=== PATIENT | female | born 1970 | race Two or more races ===

== ENCOUNTER 2019-12-24 15:50 | Inpatient (IN) | payer MEDICAID ==
[2019-12-24] VITALS (7 sets, daily range): BP systolic 119–135; BP diastolic 81–105
[~2019-12-24] VITALS: Ht 167.6 cm; Wt 78.5 kg
--- NOTE | 2019-12-24 17:30 | NUR ---
RN CLOSING NOTES NO ACUTE CHANGES TO PATIENT CONDITION DURING MY SHIFT. PHARMACY HAS NOT SENT THE INSUKLIN DRIP YET. ENDORSED TO PM NURSE TO START THE DRIP WHEN IT IS AVAILABLE. ALL PATIENT NEEDS WERE MET, CALL LIGHT WITHIN REACH, ENDORSED TO PM NURSE FOR CONTINUITY OF CARE. Addendum: 12/24/19 at 1954 by CYNTHIA KIMBROUGH RN WRONG TIME DOCUMENTED. NOTE FOR 1929
--- NOTE | 2019-12-24 17:50 | NUR ---
RN NOTE RECEIVED PATIENT DIRECT ADMIT FROM [facility]. PATIENT CAME IN WITH THE DIAGNOSIS OF DKA. A/O X4, ABLE TO MAKE NEEDS KNOWN. PATIENT IS ON ROOM AIR SATURATING WELL. NO RESPIRATORY DISTRESS NOTED. MD NOTIFIED OF PATIENTS ARRIVAL. PENDING ADMISSION ORDERS. BLOOD SUGAR WAS DONE AND RESULTS RELAYED TO PHYSICIAN. PATIENT IS ON TELE MONITOR WITH SR NOTED. LAC AND RAC 20 GAUGE INTACT, PATENT AND FLUSHED WELL. NO S/S OF INFECTION NOTED. ALL PATIENTS NEED MET, SAFETY WAS MAINTAINED, CALL LIGHT WITHIN REACH, WILL CONTINUE TO MONITOR.
--- NOTE | 2019-12-24 18:00 | NUR ---
RN NOTE MD PLACED AN ORDER FOR INSULIN DRIP. PROTOCOL DONE AND FAXED TO THE PHARMACY. WAITING ON PHARMACY TO BRING THE MEDICATION. PATIENT SAFETY IS MAINTAINED, CALL LIGHT WITHIN REACH, WILL CONTINUE TO MONITOR.
[2019-12-24] MEDS ORDERED: IV D5/0.45 NACL 1,000 ML IV PRN (18:30)
[2019-12-24] MEDS ORDERED: DEXTROSE 50%-WATER 50 ML DISP.SYRIN IV PRN (18:30)
[2019-12-24] MEDS ORDERED: MAG HYDROX/AL HYDROX/SIMETH 30 ML UDC PO PRN (19:00)
[2019-12-24] MEDS ORDERED: ONDANSETRON HCL/PF 4 MG/2 ML VIAL IVP PRN (19:00)
[2019-12-24] MEDS ORDERED: Z GUARD REMEDY 2 OZ OINT TP PRN (19:00)
[2019-12-24] MEDS ORDERED: ZOLPIDEM TARTRATE 5 MG TABLET PO PRN (19:00)
--- NOTE | 2019-12-24 19:30 | NUR ---
RN CLOSING NOTES NO ACUTE CHANGES TO PATIENT CONDITION DURING MY SHIFT. PHARMACY HAS NOT SENT THE INSUKLIN DRIP YET. ENDORSED TO PM NURSE TO START THE DRIP WHEN IT IS AVAILABLE. ALL PATIENT NEEDS WERE MET, CALL LIGHT WITHIN REACH, ENDORSED TO PM NURSE FOR CONTINUITY OF CARE.
[2019-12-24] MEDS: BLOOD SUGAR DIAGNOSTIC 1 EACH STRIP IN SCH ×5 (19:32→23:16)
[2019-12-24] MEDS: MORPHINE SULFATE INJ 2 MG/ML DISP.SYRIN IV PRN (19:51)
[2019-12-24] MEDS: INSULIN REGULAR, HUMAN 100 UNIT in IV NS 0.9% 99 ML IV PRN ×4 (20:07→21:00)
--- NOTE | 2019-12-24 20:30 | NUR ---
VP INTEGRATION NOTES RECEIVED PT IN BED. AOX4, ABLE TO MAKE NEEDS KNOWN. ON RA W/O2 SAT 95%, NO SOB NOTED. LARGE ANIMAL HUSBANDRY TECHNICIAN W/NSR. CONTINENT OF BOWEL AND URINE ABLE TO USE BEDSIDE COMMODE. PT IS AMBULATORY W/STANDBY ASSIST. SKIN IS INTACT. B ARM AC W/20G IVF AND INSULIN DRIP RUNNING PER PROTOCOL. ACCU-CHECK Q1H. . ALL SAFETY MEASURES IN PLACE. BED LOCKED, IN LOWEST POSITION. C/O PAIN, GIVING PRN PAIN MED, AND CONT TO MONITOR
[2019-12-24 21:07] LABS: CALCIUM, SERUM 7.7 mg/dL (8.5-10.1); CREATININE 0.9 mg/dL (0.6-1.3); POTASSIUM 4.1 mmol/L (3.5-5.1)
[2019-12-25] VITALS (20 sets, daily range): BP systolic 117–150; BP diastolic 74–102
[2019-12-25] MEDS: BLOOD SUGAR DIAGNOSTIC 1 EACH STRIP IN SCH ×8 (00:10→07:35)
[2019-12-25 02:14] LABS: BASOPHILS # (AUTO) 0.1 /CMM (0.0-0.2); BASOPHILS % (AUTO) 0.8 % (0.0-2.0); EOSINOPHILS % (AUTO) 0.1 % (0.0-6.0); HEMATOCRIT 24 % (33-45); LYMPHOCYTES # (AUTO) 1.1 /CMM (0.8-4.8); LYMPHOCYTES % (AUTO) 13.7 % (20.0-44.0); MEAN CORPUSCULAR HGB CONC 33 g/dl (31.0-36.0); MEAN CORPUSCULAR VOLUME 92 fL (82-100); MONOCYTES # (AUTO) 0.9 /CMM (0.1-1.30); MONOCYTES % (AUTO) 10.3 % (2.0-12.0); NEUTROPHILS # (AUTO) 6.3 /CMM (1.8-8.9); NEUTROPHILS % (AUTO) 75.1 % (43.0-81.0); PLATELET COUNT (AUTO) 195 /CMM (150-450); RED BLOOD CELL COUNT(AUTO) 2.65 MIL/uL (4.0-5.2); WHITE BLOOD COUNT (AUTO) 8.3 K/uL (4.3-11.0)
[2019-12-25 02:21] LABS: CALCIUM, SERUM 7.8 mg/dL (8.5-10.1); CREATININE 0.9 mg/dL (0.6-1.3); MAGNESIUM 1.8 mg/dL (1.8-2.4); PHOSPHORUS 2.3 mg/dL (2.5-4.9); POTASSIUM 4.3 mmol/L (3.5-5.1)
--- NOTE | 2019-12-25 03:30 | NUR ---
RAGMAN NOTES ROB NERI CALLED BACK, GIVEN INFO: PT'S POTASSIUM=4.3,ANION GAP=11, CO2=25, CURRENT MJ=002 AT 0300 AND RUNNING INSULIN W/CALCULATED DRIP AT 2.62U RIGHT NOW, ALONG W/IVF D51/2NS AT 100ML/HR. PT'S C/O RUQ PAIN. NEW ORDER FOLLOWING RECEIVED: -TO D/C INSULIN GTT, - GIVE 10U OF REGULAR INSULIN SQ RIGHT NOW - RECHECK IN 1 HR, IF BS IS WNL TO D/C D5 1/2NS, - START PT ON CCHO DIET TOLERATED. ORDER CARRIED OUT. WILL CONT TO MONITOR
[2019-12-25] MEDS ORDERED: INSULIN REGULAR, HUMAN 100 UNIT/ML 10 ML VIAL SQ ONE (03:32)
--- NOTE | 2019-12-25 06:50 | NUR ---
BLOWER AND COMPRESSOR ASSEMBLER NOTES PT IN BED SLEEPING EASILY AROUSABLE,. NAD, NO SOB AT THIS TIME. ENDORSED TO THE ONCOMING RN
--- NOTE | 2019-12-25 07:30 | NUR ---
COMPUTER PROJECT MANAGER INITIAL NOTE RECEIVED PATIENT AWAKE, ALERT AND ORIENTED. C/O 7/10 RLQ ABDOMEN. AND BACK PAIN, AND NAUSEA. ON TELE MONITOR SR. SKIN WARM AND DRY TO TOUCH. PATIENT REQUESTED FOR LAXATIVE. ON TELE MONITOR SR. SIDE RAILS UP AND LOCKED. BED KEPT AT LOWEST POSITION. CALL LIGHT KEPT WITHIN EASY REACH. WILL CONTINUE TO MONITOR.
[2019-12-25] MEDS: MORPHINE SULFATE INJ 2 MG/ML DISP.SYRIN IV PRN ×2 (07:42→19:58)
[2019-12-25] MEDS: MAGNESIUM HYDROXIDE 30 ML UDC PO PRN ×2 (07:50→20:18)
--- NOTE | 2019-12-25 07:50 | NUR ---
SLP TEACHER NOTE INFORMED DR LOMAX RECENT BLOOD SUGAR 204 AND PATIENT HAS BEEN OFF OF THE INSULIN DRIP, DOES NOT HAVE SLIDING SCALE. RECEIVED ORDER FOR MODERATE SLIDING SCALE FOR PATIENT. NOTED
[2019-12-25] MEDS: BLOOD SUGAR DIAGNOSTIC 1 EACH STRIP VI SCH ×4 (08:00→22:36)
[2019-12-25] MEDS ORDERED: DEXTROSE 50%-WATER 50 ML DISP.SYRIN IV PRN (08:00)
--- NOTE | 2019-12-25 09:22 | NUR ---
HUMAN RESOURCE OFFICER NOTE PATIENT RESTING COMFORTABLY AT THIS TIME. STATES SHE FEELS BETTER.
--- NOTE | 2019-12-25 09:47 | NUR ---
POLICE CHIEF NOTE WAITING FOR INSULIN FROM PHARMACY.
--- NOTE | 2019-12-25 10:35 | NUR ---
BEATER ROOM SUPERVISOR NOTE REPORT GIVEN TO 3W CHULA GRAJEDA.
--- NOTE | 2019-12-25 11:00 | NUR ---
BUILDING GUARD DEPUTY SHERIFF NOTE PATIENT TRANSFERRED TO [facility] VIA BED, ALL BELONGINGS WITH PATIENT. PATIENT SEEN BY DR LOMAX, INFORMED REGARDING PATIENT C/O CONSTIPATION, PER MD HE WILL PLACE ORDERS.
[2019-12-25] MEDS ORDERED: K PHOS NEUTRAL 250 MG TABLET PO ONE (11:30)
[2019-12-25] MEDS: INSULIN REGULAR, HUMAN 100 UNIT/ML 3 ML VIAL SQ PRN (11:43)
[2019-12-25] MEDS ORDERED: IOHEXOL-300 100 ML VIAL IV ONE (12:22)
[2019-12-25] MEDS ORDERED: IV NS 0.9% 250 ML IV ONE (12:23)
--- NOTE | 2019-12-25 13:31 | NUR ---
MS RN NOTES CALL RECEIVED FROM RADIOLOGIST ASKING FOR DR. BHANDARI PHONE NUMBER. PHONE NUMBER PROVIDED. WILL CONTINUE TO MONITOR.
--- NOTE | 2019-12-25 13:56 | NUR ---
MS RN NOTES DR. LOMAX AWARE OF CT OF THE ABD RESULTS. REQUESTED CONSULT WITH DR. CALDWELL. DR. CALDWELL MADE AWARE. WILL CONTINUE TO MONITOR.
[2019-12-25 15:38] LABS: BASOPHILS % (AUTO) 0.5 % (0.0-2.0); EOSINOPHILS % (AUTO) 2.3 % (0.0-6.0); HEMATOCRIT 23 % (33-45); HEMOGLOBIN 7.7 g/dL (11.5-14.8); LYMPHOCYTES # (AUTO) 1.2 /CMM (0.8-4.8); LYMPHOCYTES % (AUTO) 15.5 % (20.0-44.0); MEAN CORPUSCULAR HGB CONC 34 g/dl (31.0-36.0); MEAN CORPUSCULAR VOLUME 93 fL (82-100); NEUTROPHILS # (AUTO) 5.3 /CMM (1.8-8.9); NEUTROPHILS % (AUTO) 68.7 % (43.0-81.0); PLATELET COUNT (AUTO) 184 /CMM (150-450); RED BLOOD CELL COUNT(AUTO) 2.49 MIL/uL (4.0-5.2); WHITE BLOOD COUNT (AUTO) 7.7 K/uL (4.3-11.0)
--- NOTE | 2019-12-25 16:30 | NUR ---
MS RN NOTES PATIENT SEEN BY DR. CALDWELL NO INTERVENTIONS BY GENERAL SURGERY NEEDS OB. DR. LOMAX MADE AWARE AND CONSULTING DR. DO. ORDERS OBTAINED FROM DR. LOMAX TO TRANSFER TO ICU.
--- NOTE | 2019-12-25 17:00 | NUR ---
RN NOTES PATIENT TRANSFERRED TO ICU FOR CLOSER OBSERVATION. REPORT GIVEN TO ALBERT AT BEDSIDE.
--- NOTE | 2019-12-25 18:30 | NUR ---
POCKET STITCHER - DR PIZARRO ORDERS NS 0.9 % @ 75 ML/ HR CLEAR LIQUID DIET IF NO SURGERY SCHEDULED BY DEL
--- NOTE | 2019-12-25 19:00 | NUR ---
Received patient in bed awake,alert,converses,coherent and appropriate,not in any acute distress,still with pain( abdominal,RLQ pain and back pain),abdomen,soft,non distended,+ tenderness.Will closely monitor for any S/S of bleeding.
--- NOTE | 2019-12-25 19:00 | NUR ---
DYE MACHINE OPERATOR PATIENT A/O X4 . PATIENT IS ALERT AND ORIENTED . COOPERATIVE AND COMPLIANT WITH CARE. NO PAIN , NO SOB, NO ACUTE RESPIRATORY DISTRESS AT THIS TIME. SKIN IN TACT, L AC 18 RIGHT AC 18, NO SIGNS OF INFILTRATION OR RED NESS. PATENT AND FLUSHED. ON 75 ML/HR NS 0.9% MAINTENANCE BED LOCKED LOWEST POSITION CALL LIGHT WITH IN REACH ALL SAFETY MEASURE IMPLEMENTED PER HOSPITAL POLICY
[2019-12-25] MEDS: IV NS 0.9% 1,000 ML IV PRN (19:05)
--- NOTE | 2019-12-25 19:30 | NUR ---
Lab came to draw blood for CBC.
[2019-12-25 19:54] LABS: BASOPHILS % (AUTO) 0.4 % (0.0-2.0); EOSINOPHILS % (AUTO) 2.5 % (0.0-6.0); HEMATOCRIT 22 % (33-45); HEMOGLOBIN 7.3 g/dL (11.5-14.8); LYMPHOCYTES # (AUTO) 1.4 /CMM (0.8-4.8); LYMPHOCYTES % (AUTO) 15.8 % (20.0-44.0); MEAN CORPUSCULAR HGB CONC 33 g/dl (31.0-36.0); MEAN CORPUSCULAR VOLUME 94 fL (82-100); MONOCYTES # (AUTO) 1.1 /CMM (0.1-1.30); MONOCYTES % (AUTO) 12.5 % (2.0-12.0); NEUTROPHILS % (AUTO) 68.8 % (43.0-81.0); PLATELET COUNT (AUTO) 188 /CMM (150-450); RED BLOOD CELL COUNT(AUTO) 2.38 MIL/uL (4.0-5.2); WHITE BLOOD COUNT (AUTO) 8.7 K/uL (4.3-11.0)
--- NOTE | 2019-12-25 20:45 | NUR ---
HGB= 7.3 ,relayed to Enrique Serrano .also referred about patient has not had any bowel movement since Monday(patient on MOM but has not had any BM), did not want to order any more extra laxative as per him ,with patient having Hemoperitoneum , its not advisable to increase GI motility.Patient then was made aware .
--- NOTE | 2019-12-25 22:00 | NUR ---
Pain slightly relived by Morphine,able to sleep in between.
[2019-12-25] MEDS: *INSULIN REGULAR(HUMULIN R)HUM 100 UNIT/ML VIAL SQ PRN (22:35)
[2019-12-26] VITALS (28 sets, daily range): BP systolic 110–150; BP diastolic 63–92
--- NOTE | 2019-12-26 | NUR ---
Remains ,stable.awake,alert,still with on and off RLQ pain and back pain,gets OOB to the commode .tolerating well .
[2019-12-26] MEDS: MORPHINE SULFATE INJ 2 MG/ML DISP.SYRIN IV PRN (00:37)
[2019-12-26 04:09] LABS: BASOPHILS % (AUTO) 0.4 % (0.0-2.0); EOSINOPHILS % (AUTO) 3.6 % (0.0-6.0); LYMPHOCYTES # (AUTO) 1.3 /CMM (0.8-4.8); LYMPHOCYTES % (AUTO) 16.8 % (20.0-44.0); MEAN CORPUSCULAR HGB CONC 33 g/dl (31.0-36.0); MEAN CORPUSCULAR VOLUME 93 fL (82-100); MONOCYTES % (AUTO) 13.1 % (2.0-12.0); NEUTROPHILS # (AUTO) 4.9 /CMM (1.8-8.9); NEUTROPHILS % (AUTO) 66.1 % (43.0-81.0); PLATELET COUNT (AUTO) 181 /CMM (150-450); RED BLOOD CELL COUNT(AUTO) 2.19 MIL/uL (4.0-5.2); WHITE BLOOD COUNT (AUTO) 7.5 K/uL (4.3-11.0)
[2019-12-26 04:18] LABS: CALCIUM, SERUM 7.7 mg/dL (8.5-10.1); CREATININE 0.7 mg/dL (0.6-1.3); MAGNESIUM 2.1 mg/dL (1.8-2.4); PHOSPHORUS 2.3 mg/dL (2.5-4.9); POTASSIUM 3.8 mmol/L (3.5-5.1)
[2019-12-26 04:58] LABS: HEMOGLOBIN 6.7 g/dL (11.5-14.8)
[2019-12-26 04:59] LABS: HEMATOCRIT 20 % (33-45)
[2019-12-26 05:13] LABS: LYMPHOCYTES % (MANUAL) 23 % (16-48); NEUTROPHILS % (MANUAL) 68 (42-76)
[2019-12-26 05:14] LABS: MONOCYTES % (MANUAL) 9 % (0-11.0)
--- NOTE | 2019-12-26 05:30 | NUR ---
Message sent to MD relay HGB of 6.7
--- NOTE | 2019-12-26 06:10 | NUR ---
Called Md service to relay HGB result of 6.7 , waiting for call back
--- NOTE | 2019-12-26 06:30 | NUR ---
Still no response from .Another call made to the answering service.
--- NOTE | 2019-12-26 06:45 | NUR ---
Still no response from [facility] ,sheet metal operator called back to check if we got a response,states he will try to reach MD again.
--- NOTE | 2019-12-26 07:05 | NUR ---
RN NOTES RECEIVED PT ON BED, A/OX4, ON RA , NO SOB NOTED, VSS STABLE, C/O ON ABDOMINAL PAIN LEVEL 2/10 , ABDOMEN SOFT TO TOUCH, R AC AND L AC IV SITE G 20 CLEAN, DRY AN INTACT, NS AT 75CC/HR RUNNING , IV SITES CLEAN, DRY AND INTACT, SR UP X3, CALL LIGHT WITHIN EASY REACH, BED LOCKED AND IN LOWEST POSITION, CONTINUE TO MONITOR .
--- NOTE | 2019-12-26 07:10 | NUR ---
EPIC HARDWOOD FLOOR FINISHER CALLED BACK AGAIN TO CHECK IF ANTONY NERI ANSWERED,MADE HIM AWARE THAT HE HASN'T ,SERVICE ENGINEER SAID HE WILL PAGE THE ATTENDING DR. LOMAX.
--- NOTE | 2019-12-26 07:15 | NUR ---
RESPONDED ,REFERRED LOW HGB= 6.7.ORDERED TO GIVE 1 UNIT PRBC AND KEEP PATIENT NPO.
--- NOTE | 2019-12-26 07:42 | NUR ---
RN NOTES BLOOD CONSENT FORM SIGNED BY THE PT.
[2019-12-26] MEDS: IV NS 0.9% 1,000 ML IV PRN (07:52)
[2019-12-26] MEDS: BLOOD SUGAR DIAGNOSTIC 1 EACH STRIP VI SCH ×4 (08:09→22:06)
--- NOTE | 2019-12-26 09:22 | NUR ---
RN NOTES BLOOD TRANSFUSION STARTED, VSS STABLE , CONTINUE TO MONITOR .
[2019-12-26] MEDS ORDERED: K PHOS NEUTRAL 250 MG TABLET PO ONE (13:00)
--- NOTE | 2019-12-26 13:00 | NUR ---
RN NOTES PT TOLERATED BLOOD TRANSFUSION WELL, NO REACTION NOTED , CONTINUE TO MONITOR .
[2019-12-26] MEDS ORDERED: Sodium Phosphate 15 MMOL in IV NS 0.9% 245 ML IV SCH (14:00)
[2019-12-26 15:24] LABS: BASOPHILS % (AUTO) 0.6 % (0.0-2.0); EOSINOPHILS % (AUTO) 3.3 % (0.0-6.0); HEMATOCRIT 24 % (33-45); HEMOGLOBIN 7.8 g/dL (11.5-14.8); LYMPHOCYTES % (AUTO) 12.7 % (20.0-44.0); MEAN CORPUSCULAR HGB CONC 33 g/dl (31.0-36.0); MEAN CORPUSCULAR VOLUME 92 fL (82-100); MONOCYTES # (AUTO) 1.1 /CMM (0.1-1.30); MONOCYTES % (AUTO) 13.3 % (2.0-12.0); NEUTROPHILS # (AUTO) 5.7 /CMM (1.8-8.9); NEUTROPHILS % (AUTO) 70.1 % (43.0-81.0); PLATELET COUNT (AUTO) 173 /CMM (150-450); RED BLOOD CELL COUNT(AUTO) 2.58 MIL/uL (4.0-5.2); WHITE BLOOD COUNT (AUTO) 8.1 K/uL (4.3-11.0)
--- NOTE | 2019-12-26 18:30 | NUR ---
RN NOTES DR BURNS ON THE FLOOR SEEING THE PT , SURGICAL CONSENT SIGNED BY PT. PT WILL HAVE SURGERY TONIGHT PER DR BURNS ORDER . VSS STABLE, WILL ENDORSE TO CHECK CASHIER NURSER FOR CONTINUITY OF CARE,.
[2019-12-26] MEDS ORDERED: MIDAZOLAM HCL 2 MG/2ML VIAL ONE (19:01)
[2019-12-26] MEDS ORDERED: ANESTHESIA TRAY IN PYXIS 1 EA TRAY MC ONE (19:01)
[2019-12-26] MEDS ORDERED: FENTANYL PF 100MCG/2ML AMPUL ONE (19:02)
[2019-12-26] MEDS ORDERED: SEVOFLURANE 250 ML BOTTLE IH ONE (19:02)
--- NOTE | 2019-12-26 19:34 | NUR ---
SENIOR INFORMATION DEVELOPER PT PICKED UP BY OR TEAM.
[2019-12-26] MEDS ORDERED: BUPIVACAINE MPF 0.5% W/EPI INJ 30 ML VIAL ONE (20:53)
[2019-12-26] MEDS ORDERED: HYDROMORPHONE 1 MG/1 ML DISP.SYRIN IV PRN (22:30)
[2019-12-26] MEDS ORDERED: ONDANSETRON HCL/PF 4 MG/2 ML VIAL IV PRN (22:30)
[2019-12-26] MEDS ORDERED: HYDROMORPHONE INJ 2 MG/ML DISP.SYRIN IV PRN (22:30)
[2019-12-26] MEDS ORDERED: HYDROCODONE/APAP 5/325MG 1 EACH TABLET PO PRN (22:30)
[2019-12-27] VITALS (33 sets, daily range): BP systolic 98–138; BP diastolic 64–87
[2019-12-27] MEDS: IV NS 0.9% 1,000 ML IV PRN (02:15)
[2019-12-27 04:02] LABS: BASOPHILS % (AUTO) 0.1 % (0.0-2.0); HEMATOCRIT 23 % (33-45); HEMOGLOBIN 7.7 g/dL (11.5-14.8); LYMPHOCYTES # (AUTO) 0.5 /CMM (0.8-4.8); LYMPHOCYTES % (AUTO) 4.5 % (20.0-44.0); MEAN CORPUSCULAR HGB CONC 33 g/dl (31.0-36.0); MEAN CORPUSCULAR VOLUME 92 fL (82-100); MONOCYTES # (AUTO) 0.6 /CMM (0.1-1.30); MONOCYTES % (AUTO) 5.5 % (2.0-12.0); NEUTROPHILS # (AUTO) 9.7 /CMM (1.8-8.9); NEUTROPHILS % (AUTO) 89.9 % (43.0-81.0); PLATELET COUNT (AUTO) 192 /CMM (150-450); WHITE BLOOD COUNT (AUTO) 10.8 K/uL (4.3-11.0)
[2019-12-27 04:10] LABS: CALCIUM, SERUM 7.5 mg/dL (8.5-10.1); CREATININE 0.9 mg/dL (0.6-1.3); PHOSPHORUS 3.4 mg/dL (2.5-4.9)
--- NOTE | 2019-12-27 08:00 | NUR ---
PERSONNEL OFFICER: pt is A/Ox3, no pain now, slightly painful belly palpation/soft/no tender, R.LQ abd.dressing is intact/with old blood saturated 30%, SR, SBP over 100/below 160, O2sat.over 96% on 2L nc/no SOB, IVF NS 74
--- NOTE | 2019-12-27 08:00 | NUR ---
HUMANE AGENT: IVF NS 75ml/h, clear liquid diet/ok to advance, PIVLs: good blood return, BG 207/covered with ISS, H/H 7.7/23, ptzahra called/updated
[2019-12-27] MEDS: INSULIN REGULAR, HUMAN 100 UNIT/ML 3 ML VIAL SQ PRN ×3 (08:21→17:35)
[2019-12-27] MEDS: BLOOD SUGAR DIAGNOSTIC 1 EACH STRIP VI SCH ×4 (08:22→21:47)
--- NOTE | 2019-12-27 10:00 | NUR ---
NOZZLE AND SLEEVE WORKER: pt is instructed for fall/injury prevention measures and call for any help, verbalized understanding, no pain now
--- NOTE | 2019-12-27 11:00 | NUR ---
MODEL AND DYE PERSON: pt c/o chest pain now (localization around: anterior medial chest and upper epigastric, little more up with arm activity to left lateral neck pain), level 4/10, SR, SBP over 100/below 150, O2sat. 98-100%, no SOB, no nausea, no dizziness, notified , no new orders
[2019-12-27] MEDS: HYDROCODONE/APAP 5/325MG 1 EACH TABLET PO PRN (11:08)
--- NOTE | 2019-12-27 11:10 | NUR ---
ORCHESTRATOR: [place]vetia one tab given
--- NOTE | 2019-12-27 11:30 | NUR ---
COMPUTER FORENSIC SPECIALIST: is in room, updated with all above, evaluated pain level/location, abd.dressings, ok to stop IVF, no atbxs needed
--- NOTE | 2019-12-27 11:45 | NUR ---
OYSTER SHIPPER: pt refused to use bedpan now
--- NOTE | 2019-12-27 13:00 | NUR ---
PRODUCTION TEAM ADVISOR: pt sleeps, rest, SR, SBP WNL, O2sat. over 98%, tolerated well for soft diet
--- NOTE | 2019-12-27 14:01 | NUR ---
PORCELAIN ENAMEL REPAIRER: CN said: ordered transfer to MS
--- NOTE | 2019-12-27 15:45 | NUR ---
FAIRING MAN: called to and updated Dr.Susman callejas pt current condition, H/H, confirmed:no atbxs pt.needed, need appt in 5-7 days after d/c, pt is aware
--- NOTE | 2019-12-27 16:10 | NUR ---
WEEKEND RECEPTIONIST: RLQ dressing is saturated with old blood/changed, transferred pt.to MS after full report was given for CHULA Moseley
--- NOTE | 2019-12-27 16:30 | NUR ---
RN NOTE TRANSFERRED FROM ICU Patient transferred from ICU, report received from Rupert QUIROS. Patient is A/O x4, showing no signs of acute distress or SOB, stable on RA. BP 138/79 HR 87 RR 20 T 98.5 O3 98% on RA. IV line in the LAC#18g is clean and intact s/l and right wrist #20g is clean and intact s/l, both flushing well. Patient has no complaints of pain at this time. Skin assessed and patient presents with 3 small surgical incisions in the left and right lower abdomen and medial abdomen all dressings remain clean and dry. Bed is in lowest position, side rails x3 in upright position, call light is within reach, fall safety and aspiration precautions enforced. Will continue with plan of care.
--- NOTE | 2019-12-27 19:11 | NUR ---
RN CLOSING NOTE Patient transferred from ICU, report received from Rupert QUIROS. Patient is A/O x4, showing no signs of acute distress or SOB, stable on RA. IV line in the LAC#18g is clean and intact s/l and right wrist #20g is clean and intact s/l, both flushing well. Patient has no complaints of pain during my shift. Skin assessed and patient presents with 3 small surgical incisions in the left and right lower abdomen and medial abdomen all dressings remain clean and dry. All patient needs met, all due medications given, patient kept clean and dry throughout shift. Bed is in lowest position, side rails x3 in upright position, call light is within reach, fall safety and aspiration precautions enforced. Report given to awake overnight monitor CHULA Keating for MARVEL.
--- NOTE | 2019-12-27 19:30 | NUR ---
Received Ms. Lowryggs in her bed asleep. When arm touched and name spoken she opened her eyes. Alert and oriented X4. and soft denies passing gas NO BM for 2 days. encouraged ambulation and getting OOB for meals. Fresh water at the bedside and encouraged her drink water..
[2019-12-27] MEDS: *INSULIN REGULAR(HUMULIN R)HUM 100 UNIT/ML VIAL SQ PRN (21:52)
[2019-12-28] MEDS: HYDROCODONE/APAP 5/325MG 1 EACH TABLET PO PRN (03:44)
[2019-12-28] MEDS: BLOOD SUGAR DIAGNOSTIC 1 EACH STRIP VI SCH ×4 (06:29→22:16)
[2019-12-28] MEDS: INSULIN REGULAR, HUMAN 100 UNIT/ML 3 ML VIAL SQ PRN ×3 (06:32→17:06)
--- NOTE | 2019-12-28 06:53 | NUR ---
Medicated X1 with PO analgesic and effective. Ambulated to the bathroom with assist steady on her legs. Had a snack at 3AM sugar this am 311 insulin given as ordered. c/o constipation MOM given last night
--- NOTE | 2019-12-28 07:34 | NUR ---
MS RN OPENING NOTE PATIENT IN BED RESTING COMFORTABLY. PATIENT IN NO ACUTE DISTRESS. NO SOB NOTED. PATIENT BREATHING IS EVEN AND UNLABORED. PATIENT STATES NO PAIN AT THIS TIME. PATIENT SAFETY PRECAUTIONS IN PLACE. PATIENT BED IS LOCKED AND IN LOWEST POSITION. CALL LIGHT WITHIN REACH. WILL CONTINUE TO MONITOR.
[2019-12-28 08:00] VITALS: BP 115/78
--- NOTE | 2019-12-28 08:42 | NUR ---
MS RN NOTE PATIENT TEMPERATURE 99.0. IMPLEMENTED COOLING MEASURES. WILL CONTINUE TO MONITOR.
--- NOTE | 2019-12-28 09:30 | NUR ---
MS RN NOTE DR. LOMAX SEEN AND EVALUATED PATIENT. PATIENT INFORMED DR. LOMAX OF NO BOWEL MOVEMENT FOR 3 DAYS. DOCULAX SUPPOSITORY OKAY TO ORDER PER .
[2019-12-28] MEDS ORDERED: METF-440 PO (10:01)
[2019-12-28] MEDS ORDERED: SENN-18 PO (10:01)
[2019-12-28] MEDS ORDERED: HYDR-4384 PO (10:01)
[2019-12-28] MEDS ORDERED: BISACODYL SUPP (10 MG) 10 MG/SUPP.RECT SUPP.RECT RC PRN (10:30)
--- NOTE | 2019-12-28 12:26 | NUR ---
MS RN NOTE NOTIFIED DR. LOMAX THAT PATIENT IS NOT FEELING WELL ENOUGH TO BE DISCHARGED HOME TODAY AT THIS TIME. PER DR. LOMAX OKAY TO CANCEL DISCHARGE FOR TODAY AND CONTINUE TO MONITOR.
--- NOTE | 2019-12-28 14:40 | NUR ---
MS RN NOTE AFTER DULCOLAX SUPPOSITORY ADMINISTERED ORDERED, PATIENT WAS ABLE TO PASS GAMA AND 1 BOWEL MOVEMENT OCCURRED. PATIENT IN NO ACUTE DISTRESS AND STATES THAT SHE FEELS RELIEVED.
[2019-12-28 16:00] VITALS: BP 133/83
--- NOTE | 2019-12-28 16:54 | NUR ---
MS RN NOTE PATIENT TEMPERATURE 99.5F. PATIENT GIVEN TYLENOL PRN ORDERED. IMPLEMENTED COOLING MEASURES.
[2019-12-28] MEDS: ACETAMINOPHEN 325 MG TABLET PO PRN (17:01)
--- NOTE | 2019-12-28 18:44 | NUR ---
MS RN CLOSING NOTE PATIENT IN BED RESTING COMFORTABLY. PATIENT IN NO ACUTE DISTRESS. NO SOB NOTED. PATIENT BREATHING IS EVEN AND UNLABORED. PATIENT STATES NO PAIN AT THIS TIME. PATIENT SURGICAL DRESSINGS DRY AND INTACT. NO S/S OF BLEEDING NOTED. PATIENT WAS ABLE TO GO TO RESTROOM FOR SECOND BOWEL MOVEMENT AND PASSING GAS. PATIENT KEPT CLEAN AND DRY THROUGHOUT SHIFT. NEEDS AND CONCERNS ADDRESSED. PATIENT SAFETY PRECAUTIONS IN PLACE. PATIENT BED IS LOCKED AND IN LOWEST POSITION. CALL LIGHT WITHIN REACH. WILL ENDORSE CARE TO PM SHIFT FOR MARVEL.
--- NOTE | 2019-12-28 19:32 | NUR ---
Received pt in her bed asleep. when name spoken she opened her eyes. denies pain. speech clear
[2019-12-28 19:38] VITALS: BP 119/68
[2019-12-28 20:03] VITALS: BP 119/68
[2019-12-28] MEDS: *INSULIN REGULAR(HUMULIN R)HUM 100 UNIT/ML VIAL SQ PRN (22:19)
--- NOTE | 2019-12-29 04:45 | NUR ---
ENDING NOTES: MOVED TO ROOM 203 D/T SHE SAID SHE SAW A WOODALL AND NEEDED TO GET OUT OF THE ROOM. SHE AMBULATED THE HALLWAY, PASSING GAS. STATED HAD A GOOD BM EARLIER YESTERDAY. SMILING AND JOKING IN GOOD SPIRITS. AND SOFT DRESSING CDI
[2019-12-29] MEDS: BLOOD SUGAR DIAGNOSTIC 1 EACH STRIP VI SCH ×2 (06:27→11:27)
[2019-12-29] MEDS: INSULIN REGULAR, HUMAN 100 UNIT/ML 3 ML VIAL SQ PRN ×2 (06:31→11:33)
--- NOTE | 2019-12-29 07:32 | NUR ---
MS RN OPENING NOTE PATIENT IN BED RESTING COMFORTABLY. PATIENT IN NO ACUTE DISTRESS. NO SOB NOTED. PATIENT BREATHING IS EVEN AND UNLABORED. PATIENT STATES NO PAIN AT THIS TIME. SURGICAL DRESSINGS DRY AND INTACT. NO S/S OF BLEEDING NOTED. PATIENT SAFETY PRECAUTIONS IN PLACE. PATIENT BED IS LOCKED AND IN LOWEST POSITION. CALL LIGHT WITHIN REACH. WILL CONTINUE TO MONITOR.
--- NOTE | 2019-12-29 08:10 | NUR ---
MS RN NOTE PATIENT TEMPERATURE IS 99.2F. GAVE TYLENOL PRN ORDERED. IMPLEMENTED COOLING MEASURES.
[2019-12-29] MEDS: ACETAMINOPHEN 325 MG TABLET PO PRN (08:13)
[2019-12-29 08:46] VITALS: BP 142/98
--- NOTE | 2019-12-29 09:00 | NUR ---
MS RN NOTE PATIENT TEMPERATURE NOW 98.6F.
--- NOTE | 2019-12-29 12:15 | NUR ---
MS MEDICAL CODING TECHNICIAN NOTE PATIENT MEDICALLY STABLE FOR DISCHARGE. PATIENT IN NO ACUTE DISTRESS. NO SOB NOTED. PATIENT BREATHING IS EVEN AND UNLABORED. DC INSTRUCTIONS PROVIDED. PATIENT VERBALIZED UNDERSTANDING. PATIENT ID BAND REMOVED. IVS REMOVED. PATIENT HAS BELONGINGS, AND BELONGINGS LIST SIGNED. PATIENT SURGICAL DRESSINGS DRY AND INTACT. NO S/S OF BLEEDING NOTED. PATIENT KEPT, CLEAN, DRY AND COMFORTABLE THROUGHOUT SHIFT. PATIENT STATES NO PAIN AT THIS TIME. PATIENT STATES ABLE TO PASS GAMA AND HAS HAD BOWEL MOVEMENTS. NEEDS AND CONCERNS ADDRESSED. PATIENT SKIN ASSESSED, NO NEW SKIN BREAKDOWN NOTED. PATIENT STEADY GAIT, AMBULATORY WITH ASSIST. PATIENT WENT BY WHEELCHAIR TO BE PICKED UP COUSIN TO GO HOME. MD AWARE OF DISCHARGE.
== END 2019-12-29 14:58 | disposition home or self-care (01) | DRG 513 ==
LOC: ICU 17:16 → MED 12-25 11:30 → ICU 12-25 17:06 → MEDSG2 12-27 16:10
PROVIDERS: ADMIT Internal Medicine; ATTEND Internal Medicine
PROC: 30233P1 Transfusion of Nonautologous Frozen Red Cells into Peripheral Vein, Percutaneous Approach (ICD-10-PCS; principal; 2019-12-26)
PROC: 0UT04ZZ Resection of Right Ovary, Percutaneous Endoscopic Approach (ICD-10-PCS; principal; 2019-12-26)
PROC: 0UT54ZZ Resection of Right Fallopian Tube, Percutaneous Endoscopic Approach (ICD-10-PCS; principal; 2019-12-26)
DX: N83.201 Unspecified ovarian cyst, right side (principal); N17.0 Acute kidney failure with tubular necrosis; K66.1 Hemoperitoneum; E11.10 Type 2 diabetes mellitus with ketoacidosis without coma; I10 Essential (primary) hypertension; D64.9 Anemia, unspecified; J98.11 Atelectasis; K57.30 Diverticulosis of large intestine without perforation or abscess without bleeding; K52.9 Noninfective gastroenteritis and colitis, unspecified; K59.00 Constipation, unspecified
CPT/HCPCS: 36415; 80048-TC; 82962-TC; 83735-TC; 84100-TC; 85025-TC; 86850-TC; 86921-TC; 87081-TC; 88305-TC; A9563; G0378; J0360; J0690; J1100; J1815; J1885; J2250; J2270; J2405; J2710; J3010; J3490; J7030; J7050; P9016-BL; Q9967